=== PATIENT | female | born 1950 | race Hispanic/Latino ===

== ENCOUNTER → 2017-06-26 | Outpatient (CLI) | payer BC, MEDICARE | END | disposition home or self-care (01) | LOC: RAH 14:45 | PROVIDERS: ATTEND Internal Medicine | DX: Z12.31 Encounter for screening mammogram for malignant neoplasm of breast (principal) | CPT/HCPCS: 77067 ==

== ENCOUNTER → 2018-06-27 | Outpatient (CLI) | payer BC, MEDICARE | END | disposition home or self-care (01) | LOC: RAH 14:34 | PROVIDERS: ATTEND Internal Medicine | DX: Z12.31 Encounter for screening mammogram for malignant neoplasm of breast (principal) | CPT/HCPCS: 77067 ==

== ENCOUNTER 2019-04-29 06:56 | Day surgery (SDC) | payer BC, MEDICARE ==
[~2019-04-29] VITALS: Ht 152.4 cm; Wt 61.7 kg
[~2019-04-29 06:56] MED LIST: MULT-1203 PO; SODIUM CHLORIDE 0.9% 1000ML 1,000 ML IV ONE
[2019-04-29 07:57] VITALS: BP 163/90
[2019-04-29] MEDS ORDERED: PROPOFOL 10 MG/ML 20ML VIAL IV ONE (08:47)
[2019-04-29 09:10] VITALS: BP 116/73
[2019-04-29 09:30] VITALS: BP 126/51
== END 2019-04-29 09:49 | disposition home or self-care (01) ==
LOC: ENDO 06:56 → DAH 06:56 → ENDO 09:49
PROVIDERS: ATTEND Internal Medicine Gastroenterology
DX: Z12.11 Encounter for screening for malignant neoplasm of colon (principal); K63.5 Polyp of colon; Z86.010 Personal history of colon polyps; Z90.49 Acquired absence of other specified parts of digestive tract; Z90.710 Acquired absence of both cervix and uterus; Z98.890 Other specified postprocedural states; Z79.899 Other long term (current) drug therapy
CPT/HCPCS: 45385; A4215; A4221; A4222; A4223; A4606; A4615; A4663; J2704; J7030

== ENCOUNTER → 2020-06-03 | Outpatient (CLI) | payer BC ==
[~2020-06-03] MED LIST changes: -SODIUM CHLORIDE 0.9% 1000ML 1,000 ML IV ONE
== END | disposition home or self-care (01) ==
LOC: RAH 08:08
PROVIDERS: ATTEND Internal Medicine
DX: R94.5 Abnormal results of liver function studies (principal)
CPT/HCPCS: 76705

== ENCOUNTER → 2020-07-01 | Outpatient (CLI) | payer BC | END | disposition home or self-care (01) | LOC: RAH 11:05 | PROVIDERS: ATTEND Internal Medicine | DX: Z12.31 Encounter for screening mammogram for malignant neoplasm of breast (principal) | CPT/HCPCS: 77067 ==

== ENCOUNTER → 2022-08-23 | Outpatient (CLI) | payer BC | END | disposition home or self-care (01) | LOC: CANSCHCLI → RAH 09:51 | PROVIDERS: ATTEND Internal Medicine | DX: Z12.31 Encounter for screening mammogram for malignant neoplasm of breast (principal) | CPT/HCPCS: 77067 ==

== ENCOUNTER → 2022-08-29 | Outpatient (CLI) | payer BC | END | disposition home or self-care (01) | LOC: RAH 09:33 | PROVIDERS: ATTEND Internal Medicine | DX: K76.0 Fatty (change of) liver, not elsewhere classified (principal); R94.5 Abnormal results of liver function studies; Z90.49 Acquired absence of other specified parts of digestive tract | CPT/HCPCS: 76705 ==

== ENCOUNTER → 2022-10-07 | Outpatient (CLI) | payer BC | END | disposition home or self-care (01) | LOC: RAH 10:38 | PROVIDERS: ATTEND Internal Medicine | DX: R22.1 Localized swelling, mass and lump, neck (principal) | CPT/HCPCS: 70491; 71260 ==

== ENCOUNTER → 2024-01-05 | Outpatient (CLI) | payer BC ==
[2024-01-05 13:42] LABS: BASOPHILS # (AUTO) 0.05 K/uL (0.00-0.20); BASOPHILS % (AUTO) 0.8 % (0.0-5.0); EOSINOPHILS # (AUTO) 0.04 K/uL (0.00-0.70); EOSINOPHILS % (AUTO) 0.6 % (0.0-8.0); IMMATURE GRANULOCYTE ABSOLUTE 0.01 K/uL (0-1); LYMPHOCYTES % (AUTO) 31.1 % (21.0-51.0); MEAN CORPUSCULAR HEMOGLOBIN 29.6 pg (27.0-33.0); MEAN CORPUSCULAR VOLUME 89.7 fL (79-99); MONOCYTES # (AUTO) 0.5 K/uL (0.1-1.0); MONOCYTES % (AUTO) 7.6 % (3.0-13.0); NEUTROPHILS # (AUTO) 3.8 K/uL (1.8-7.7); NEUTROPHILS % (AUTO) 59.7 % (40.0-77.0); PLATELET COUNT (AUTO) 248 K/uL (130-400); RED BLOOD CELL COUNT(AUTO) 5.13 MIL/uL (4.00-5.50); RED CELL DISTRIBUTION WIDTH 13.2 % (11.0-15.5); WHITE BLOOD COUNT (AUTO) 6.3 K/uL (4.8-10.8)
[2024-01-05 14:21] LABS: ALANINE AMINOTRANSFERASE 42 U/L (12-78); ALBUMIN 4.3 g/dL (3.5-5.0); ASPARTATE AMINOTRANSFERASE 23 U/L (10-37); BILIRUBIN,TOTAL 1.1 mg/dL (0.2-1.0); CARBON DIOXIDE 32 mmol/L (21-32); CHLORIDE 95 mmol/L (101-111); CHOLESTEROL 268 mg/dL (<200); CREATININE 0.7 mg/dL (0.5-1.0); GLOMERULAR FILTR. RATE CALC 91 mL/min (>90); GLUCOSE,RANDOM 100 mg/dL (70-105); HDL CHOLESTEROL 59 mg/dL (35-85); LDL DIRECT 172 mg/dL (0-99); POTASSIUM 4.4 mmol/L (3.5-5.1); SODIUM SERUM 131 mmol/L (136-145); TRIGLYCERIDES 183 mg/dL (30-200); UREA NITROGEN, BLOOD 10 mg/dL (7-18)
== END | disposition home or self-care (01) ==
LOC: LAB 13:02
PROVIDERS: ATTEND Psychiatry & Neurology Psychiatry
DX: Z79.899 Other long term (current) drug therapy (principal)
CPT/HCPCS: 36415; 80053; 80061; 82306; 82607; 82746; 84443; 85025; 93005

== ENCOUNTER → 2024-04-18 | Outpatient (CLI) | payer BC ==
--- NOTE | 2024-04-18 16:29 | HMCIMG ---
DEXA BONE DENSITY SURVEY REASON: ASYMPTOMATIC MENOPAUSAL STATE COMPARISON: None TECHNIQUE: DEXA bone densitometry was performed of the lumbar spine and left hip. FINDINGS: Mean bone mass density in the spine is 0.940 g/sq cm, T score -1.2, within normal limits. Femoral neck T score is -1.7 corresponding with osteopenia. IMPRESSION: 1. Osteopenia consistent with a moderate fracture risk.
--- NOTE | 2024-04-19 09:23 | HMCIMG ---
SCREENING MAMMOGRAM REASON: Annual Exam COMPARISON: 08/23/2022 TECHNIQUE: CC and MLO views of the bilateral breasts were performed.CAD was performed as well. FINDINGS: Parenchymal density: The breasts are heterogeneously dense, which may obscure small masses. There are no focal mass lesions. There are no pathologic appearing calcifications. There is no evidence of architectural distortion or skin thickening. IMPRESSION: Normal screening mammogram The patient was entered into a reminder system with a target due date for their next mammogram. BI-RADS CATEGORY 1: NEGATIVE Recommend monthly self breast exam as well as annual clinical examination. A negative x-ray should not delay biopsy if a dominant or clinically suspicious mass is present, since 8-10% of cancers are not identified by mammography. Dense breasts particularly, may obscure an underlying neoplasm. Some of these may be detected clinically and therefore, clinical examination is an essential part of breast evaluation.
== END | disposition home or self-care (01) ==
LOC: RAH 13:27
PROVIDERS: ATTEND Internal Medicine
DX: Z12.31 Encounter for screening mammogram for malignant neoplasm of breast (principal); Z78.0 Asymptomatic menopausal state; M85.88 Other specified disorders of bone density and structure, other site
CPT/HCPCS: 77067; 77080

== ENCOUNTER → 2024-10-30 | Outpatient (CLI) | payer BC | END | disposition home or self-care (01) | LOC: LAB 11:23 | PROVIDERS: ATTEND Psychiatry & Neurology Psychiatry | DX: Z79.899 Other long term (current) drug therapy (principal) | CPT/HCPCS: 82306 ==